=== PATIENT | female | born 1960 | race Two or more races ===

== ENCOUNTER → 2024-01-08 | Outpatient (CLI) | payer MEDICAID | END | disposition home or self-care (01) | LOC: Rad HDHVI 14:25 | PROVIDERS: ATTEND Internal Medicine Cardiovascular Disease | DX: I34.0 Nonrheumatic mitral (valve) insufficiency (principal); I11.9 Hypertensive heart disease without heart failure | CPT/HCPCS: 93306 ==

== ENCOUNTER → 2024-01-13 | Outpatient (CLI) | payer MEDICAID ==
[~2024-01-13] VITALS: Ht 152.4 cm; Wt 126.1 kg
[~2024-01-13] MED LIST: ADENOSINE 106 MG in GIVE UN-DILUTED 0 ML IV ONE; ADENOSINE 90 MG/30 ML INJ IV ONE
== END | disposition home or self-care (01) ==
LOC: Rad HDHVI 13:11
PROVIDERS: ATTEND Internal Medicine Cardiovascular Disease
DX: I11.0 Hypertensive heart disease with heart failure (principal); I50.9 Heart failure, unspecified; E11.9 Type 2 diabetes mellitus without complications; R07.9 Chest pain, unspecified; R06.02 Shortness of breath; E78.5 Hyperlipidemia, unspecified; J44.9 Chronic obstructive pulmonary disease, unspecified; E66.9 Obesity, unspecified; Z79.82 Long term (current) use of aspirin; Z79.899 Other long term (current) drug therapy
CPT/HCPCS: 78452; 93005; 96374; 96375; A9500; J0153

== ENCOUNTER → 2024-03-18 | Outpatient (CLI) | payer MEDICAID ==
[2024-03-18 10:20] VITALS: BP 169/77; PULSE 80; RESP 20; O2SAT 93
[2024-03-18 10:32] VITALS: BP 153/81; PULSE 97; RESP 18; O2SAT 93
== END | disposition home or self-care (01) ==
LOC: Rad HDHVI 10:04
PROVIDERS: ATTEND Internal Medicine Cardiovascular Disease
DX: Z01.818 Encounter for other preprocedural examination (principal); I47.20 Ventricular tachycardia, unspecified; I48.0 Paroxysmal atrial fibrillation
CPT/HCPCS: 71046; 93005; G0463

== ENCOUNTER 2024-04-09 08:57 | Day surgery (SDC) | payer MEDICAID ==
[2024-04-08 14:52] LABS: Anion Gap 3 (5-15); Carbon Dioxide 35 mmol/L (20-30); Chloride 99 mmol/L (98-107); Sodium 137 mmol/L (136-145)
[2024-04-08 14:53] LABS: Calcium 9.5 mg/dL (8.5-10.1)
[2024-04-08 14:57] LABS: Glucose 115 mg/dL (74-106)
[2024-04-08 14:58] LABS: BUN/Creatinine Ratio 18.3 (10.0-20.0); Basophils # (auto) 0.1 10 ^3/uL (0-0.2); Blood Urea Nitrogen 15 mg/dL (9-23); Eosinophils # (auto) 0.5 10 ^3/uL (0-0.8); Hemoglobin 10.8 g/dL (12.2-16.2); LDL Cholesterol 138 mg/dL (< 100); Monocytes # (auto) 0.7 10 ^3/uL (0-1.3); Neutrophils # (auto) 8.1 10 ^3/uL (1.6-8.6); Triglycerides 132 mg/dL (< 150)
[2024-04-08 14:59] LABS: Basophils % (auto) 0.5 % (0.0-2.0); Eosinophils % (auto) 4.2 % (0.0-7.0); Hematocrit 34.8 % (36.0-46.0); INR 0.98 (0.9-1.15); Lymphocytes # (auto) 2.1 10 ^3/uL (0.4-5.4); Lymphocytes % (auto) 18.4 % (10.0-50.0); Mean Corpuscular Hemoglobin 26.2 pg (28.0-32.0); Mean Corpuscular Hgb Conc. 31.1 g/dL (32.0-36.0); Mean Corpuscular Volume 84.1 fL (80.0-100.0); Monocytes % (auto) 5.9 % (0.0-12.0); Partial Thromboplastin Time 29.3 SEC (24.5-34.5); Prothrombin Time 10.4 sec (9.3-11.8); Red Blood Cells 4.14 10^6/uL (4.0-5.20); Red Cell Distribution Width 16.3 % (11.8-14.3); White Blood Cell 11.5 10^3/uL (4.4-10.8)
[2024-04-08 15:00] LABS: Cholesterol 209 mg/dL (< 200); HDL Cholesterol 46 mg/dL (40-59)
[~2024-04-09] VITALS: Ht 152.4 cm; Wt 126.1 kg
[~2024-04-09 08:57] MED LIST changes: +ACE650RS PR; +ACET-1881 PO; -ADENOSINE 106 MG in GIVE UN-DILUTED 0 ML IV ONE; -ADENOSINE 90 MG/30 ML INJ IV ONE; +ALBU108A5 IN; +ASPI-543 PO; +ATOR40TA52 PO; +FURO40TA4 PO; +HYDR50TA47 PO; +METF-370 PO; +METO-158 PO; +POTA-220 PO; +SEMA2INJ3 SC
[2024-04-09] MEDS ORDERED: LIDOCAINE 2%HCL (LOCAL ANESTH.) INJ 20ML MDV ONE ×2 (09:28→09:48)
[2024-04-09] MEDS ORDERED: IODIXANOL 320MG/ML 100ML BTL IV ONE (09:28)
[2024-04-09] MEDS ORDERED: IOHEXOL 350 MG/ML 100ML IJ ONE ×2 (09:48→10:14)
[2024-04-09] MEDS ORDERED: MIDAZOLAM HCL 2MG/2ML 2ml VIAL (1mg/ml) ONE (09:49)
[2024-04-09] MEDS ORDERED: ANGIOMAX 250 MG VIAL IV ONE ×2 (09:49→10:56)
[2024-04-09] MEDS ORDERED: SODIUM CHL 0.9% 50 ML ONE ×2 (09:49→10:56)
[2024-04-09] MEDS ORDERED: fentaNYL CITRATE 100 MCG/2 ML VL ONE ×2 (09:49→10:47)
[2024-04-09] MEDS ORDERED: VERAPAMIL 2.5MG/ML INJ 2ML VIAL IV ONE ×2 (09:59→10:47)
[2024-04-09] MEDS ORDERED: HEPARIN SODIUM (PORCINE) 5000 UNITS/ML 1ML VIAL ONE (09:59)
[2024-04-09] MEDS ORDERED: CLOPIDOGREL BISULFATE 75 MG TAB ONE (11:16)
[2024-04-09] MEDS ORDERED: ASPirin 81 mg TAB ONE (11:17)
[2024-04-09] MEDS ORDERED: CLOP75TA28 PO (12:10)
[2024-04-09] MEDS: ACETAMINOPHEN 325 MG TAB PO ONE (13:34)
== END 2024-04-09 14:26 | disposition home or self-care (01) ==
LOC: CATH 08:57
PROVIDERS: ATTEND Internal Medicine Cardiovascular Disease
DX: R07.9 Chest pain, unspecified (principal); I25.10 Atherosclerotic heart disease of native coronary artery without angina pectoris; I10 Essential (primary) hypertension; E78.5 Hyperlipidemia, unspecified; E11.40 Type 2 diabetes mellitus with diabetic neuropathy, unspecified; J44.9 Chronic obstructive pulmonary disease, unspecified; E66.01 Morbid (severe) obesity due to excess calories; Z87.891 Personal history of nicotine dependence; Z86.73 Personal history of transient ischemic attack (TIA), and cerebral infarction without residual deficits; Z82.49 Family history of ischemic heart disease and other diseases of the circulatory system; Z79.84 Long term (current) use of oral hypoglycemic drugs; Z79.82 Long term (current) use of aspirin; Z79.01 Long term (current) use of anticoagulants; Z79.899 Other long term (current) drug therapy; Z98.890 Other specified postprocedural states
CPT/HCPCS: 36415; 80048; 80061; 85025; 85610; 85730; 92972; 93458; C1725; C1769; C1874; C1887; C1894; C9602; J0583; J1644; J2250; J3010; Q9967; 99152; 99153; C9600

== ENCOUNTER → 2024-06-11 | Outpatient (CLI) | payer MEDICAID ==
[~2024-06-11] MED LIST changes: +CLOP75TA28 PO
== END | disposition home or self-care (01) ==
LOC: Rad HDHVI 11:03
PROVIDERS: ATTEND Internal Medicine Cardiovascular Disease
DX: I35.8 Other nonrheumatic aortic valve disorders (principal); I10 Essential (primary) hypertension
CPT/HCPCS: 93306

== ENCOUNTER → 2025-04-16 | Outpatient (CLI) | payer MEDICARE, MEDICAID ==
--- NOTE | 2025-04-21 14:14 | DVHSR ---
APPROVED REPORT EXAM: LIMITED Two-dimensional and M-mode echocardiogram with Doppler and color Doppler. RISK FACTORS Obesity: DIMENSIONS LVDd5.5 (3.8-5.7cm)LA (2D)4.0 (1.9-4.0cm)Aortic Root2.9 (2.0-3.7cm) LVDs3.7 (2.5-4.0cm)LA (MM) (1.9-4.0cm)Aortic Cusp Exc1.8 (1.5-2.0cm) EF (%) 60.0 (55-70%)Rt. Atrium3.7 (1.9-4.0cm)Asc. Aorta3.5 cm IVSd1.2 (0.7-1.1cm)RV (D) (1.8-2.4cm) PWd1.2 (0.7-1.1cm) Mitral Valve MitralMitral Stenosis E wave1.30m/sMV Mean GR.mmHg A wave1.30m/sMV Peak GR.mmHg E/A ratio1.02D MVAcm2 Aortic Valve Aortic ValveAortic Stenosis V11.00m/Osorio Mean GR.10mmHg V22.00m/Osorio Peak GR.17mmHg LVOT Diameter2.3 (1.8-2.4cm)Doppler AVA2.08cm2 Pulmonic Valve V20.90m/s Tricuspid Valve TR Velocity2.50m/s [id number] LEFT VENTRICLE The left ventricle is normal size. The left ventricle is normal in structure and function. The Ejection Fraction is within normal limits. RIGHT VENTRICLE The right ventricle is normal size. ATRIA The left atrial size is normal. The right atrium size is normal. The interatrial septum is intact with no evidence for an atrial septal defect. MITRAL VALVE The mitral valve is normal in structure and function. There is no mitral valve regurgitation noted. PULMONIC VALVE The pulmonic valve is not well visualized. TRICUSPID VALVE The tricuspid valve is grossly normal. AORTIC VALVE The aortic valve opens well. No aortic regurgitation is present. GREAT VESSELS The aortic root is normal size. PERICARDIAL EFFUSION There is no pericardial effusion. Other Information Quality : Technically LimitedRhythm : Technically limited study due to body habitus. Conclusion LVH EF >55%
== END | disposition home or self-care (01) ==
LOC: Rad HDHVI 11:12
PROVIDERS: ATTEND Internal Medicine Cardiovascular Disease
DX: R06.02 Shortness of breath (principal)
CPT/HCPCS: 93306